=== PATIENT | male | born 1990 | race Caucasian/White ===

== ENCOUNTER 2024-06-27 03:33 | Emergency (ER) | payer SELFPAY ==
[2024-06-27 03:37] VITALS: BP 138/95
[2024-06-27 04:18] VITALS: BP 161/108
[2024-06-27 04:41] LABS: % Basophils 0.3 % (0-2); % Eosinophils 0.8 % (0-6); % Immature Granulocytes 0.4 % (0-0.5); % Lymphocytes 26.1 % (20.5-51.1); % Monocytes 7.4 % (1.7-9.3); Absolute Eosinophils 0.1 10^3/uL (0-0.7); Absolute Lymphocytes 2.9 10^3/uL (1.2-3.4); Absolute Monocytes 0.8 10^3/uL (0.1-0.6); Absolute Neutrophils 7.2 10^3/uL (1.4-6.5); Hematocrit 41.4 % (39.0-52.0); Hemoglobin 14.7 g/dL (13.0-18.0); Mean Corp Hgb Conc. 35.5 g/dL (33.0-37.0); Mean Corpuscular Hgb 32.2 pg (27.0-31.0); Mean Corpuscular Volume 90.8 fL (80.0-94.0); Mean Platelet Volume 11.3 fL (7.4-10.4); Nucleated Red Blood Cells % 0 % (-); Platelet Count 186 10^3/uL (130-400); Red Blood Cell Count 4.56 10^6/uL (4.70-6.10); Red Cell Dist. Width 12.8 % (11.5-14.5); White Blood Cell Count 11.1 10^3/uL (4.8-10.8)
[2024-06-27 04:48] VITALS: BMI 23.0
[2024-06-27 04:56] LABS: ALT (SGPT) 18 U/L (0-50); AST (SGOT) 19 U/L (17-59); Albumin 5.2 g/dl (3.5-5.0); Alkaline Phosphatase 69 U/L (38-126); Blood Urea Nitrogen 12 mg/dl (9-20); Calcium 10.4 mg/dl (8.4-10.2); Carbon Dioxide 19 mmol/L (22-30); Chloride 105 mmol/L (98-107); Estimated Creatinine Clearance > 125 ml/min; Glucose 124 mg/dl (70-99); Potassium 3.8 mmol/L (3.5-5.1); Sodium 135 mmol/L (135-145); Total Bilirubin 1.1 mg/dl (0.2-1.3); Total Protein 7.6 g/dl (6.3-8.2); eGFR > 60.00
[2024-06-27 04:58] LABS: C-Reactive Protein < 5.00 mg/L (0.0-10.00)
--- NOTE | 2024-06-27 05:13 | ED.GENMED ---
History of Present Illness
General
Chief Complaint: Numbness
Source: patient
Exam Limitations: none
Time Seen by Provider: 06/27/24 04:16
Nursing documentation reviewed up to this point in time: agreed with
History of Present Illness
History of Present Illness:
This is a 33-year-old gentleman who has no significant past medical history who states he was skiing in [place] over the past weekend. He did suffer a few minor falls, denies injury. He does note mild intermittent twinges of low back pain while
skiing but generally brief, nonradiating without associated symptoms. He returned home on Monday night, June 23 and has had intermittent mild low back pain since then but then awoke over 24 hours ago with severe generalized low back pain that
has worsened throughout the day. Low back pain seems to come in waves, spasms, questionably worse with movement and he has noticed progressive paresthesia, numbness and tingling of bilateral legs chronic global leg that has worsened throughout the
day as well as progressive weakness of his legs more so left leg than right. He has had no falls. He does admit to marked difficulty lifting his legs to get into the car to be driven to the ED.
He has not had a fever nor chills.
He has had difficulty urinating tonight despite increasing fluid intake. He last voided at 9:30 PM, difficulty doing so and continues with urge to void but unable to do so. He has had no incontinence.
He has not been taking anything for discomfort.
No history of similar episodes in the past.
He takes no medicines on a daily basis.
Past History
Past History
ED Past Medical History: None
ED Past Surgical History: Orthopedic (Right shoulder 2009)
Social History
Tobacco: Smoker
Alcohol: Occasional
Drug: None
Personal: Single
Living: with family
Employment: Employed
Family History
Family History: Other (Kidney stones-father)
Phy Exam
Physical Exam
Physical Exam:
GENERAL: 33-year-old gentleman appears his stated age, awake and alert, appears moderately uncomfortable. Cooperative.
EYE: pupils equal and reactive. anicteric
NECK: Supple, nontender, no meningismus, no significant adenopathy.
ENT: , oral mucosa is moist. No rhinorrhea.
CARDIAC: Regular rate and rhythm. no murmur.
LUNGS: Clear breath sounds bilaterally, no acute respiratory distress, no wheezes/rales/rhonchi
ABDOMEN: Soft, nondistended, mild tenderness over palpably moderately distended bladder. No r/g, no cvat. normoactive BS.
BACK: Mild generalized tenderness bilateral lower lumbar region. No midline bony tenderness.
NEUROLOGICAL: Alert and oriented x3, global paresthesias bilateral lower extremities. Gross sensation intact bilaterally. Mild weakness of hip flexors bilaterally. Dorsiflexion and plantarflexion intact bilaterally. DTRs +2/4 and symmetric
bilaterally
SKIN: Warm and dry, normal color, skin intact. No rash.
MUSCULOSKELETAL: No C/C/E. peripheral pulses are full and equal b/l. No palpable tenderness.
PSYCH: Normal and appropriate interaction.
Course
Orders/Labs/Results
Orders:
Orders
06/27/24 04:03
Bladder Scan- Treatment ONCE
06/27/24 04:18
Straight Cath As Directed
Frequency: One time now
06/27/24 04:21
Lidocaine 2% [Lidocaine Uro-Jet 2%] 1 syringe .ROUTE .K-MED ONE
06/27/24 04:27
CRP [C-Reactive Protein] Urgent
Complete Blood Count/With Diff Urgent
Comprehensive Metabolic Panel Urgent
Sed Rate [Erythrocyte Sed Rate] Urgent
06/27/24 04:36
Lumbar Without Contrast MR [MR Lumbar Without Contrast] Urgent
Comment:
Reason For Exam: severe LBP, x 24 hours w b/l leg weakness/numbness
OK for patient to be off Cardiac Monitoring for MRI: Yes
Recent pill cam endoscopy?: No
06/27/24 05:52
Urinalysis Reflex To Culture Urgent
Date Specimen was Collected: 06/27/24
Time Specimen was Collected: 05:49
06/27/24 06:05
Morphine Sulfate 4 mg IV NOW STA
06/27/24 06:30
CT Angio Abd/Pelvis w/wo IV [CT Abd/pelvis Angio W/wo Iv] Urgent
Comment:
Reason For Exam: acute LBP, urinary retention, LE weakness/numb
Abnormal Lab Results
06/27/24
04:27
WBC 11.1 H 10^3/uL
(4.8-10.8)
RBC 4.56 L 10^6/uL
(4.70-6.10)
MCH 32.2 H pg
(27.0-31.0)
MPV 11.3 H fL
(7.4-10.4)
Absolute Neuts (auto) 7.2 H 10^3/uL
(1.4-6.5)
Absolute Monos (auto) 0.8 H 10^3/uL
(0.1-0.6)
Carbon Dioxide 19 L mmol/L
(22-30)
Glucose 124 H mg/dl
(70-99)
Calcium 10.4 H mg/dl
(8.4-10.2)
Albumin 5.2 H g/dl
(3.5-5.0)
06/27/24 04:27
06/27/24 04:27
Vital Signs
Initial and Last Documented VS:
Initial Vital Signs
Temp Pulse Resp BP Pulse Ox
98.4 F 72 16 138/95 100
06/27/24 03:37 06/27/24 03:37 06/27/24 03:37 06/27/24 03:37 06/27/24 03:37
Last Documented Vital Signs
Temp Pulse Resp BP Pulse Ox
98.4 F 68 16 141/89 100
06/27/24 03:37 06/27/24 06:15 06/27/24 06:15 06/27/24 05:42 06/27/24 06:15
MDM/Problems Addressed
Differential Diagnosis Includes:
Significant concern for acute cord syndrome, cauda equina syndrome as patient presents with acute progressive low back pain with paresis and paresthesia along with acute urinary retention.
Bladder scan reveals 900 cc in the bladder.
Will plan for straight cath, laboratory studies including inflammatory markers and will plan for stat MRI of the lumbar spine.
Update Note
Update Note:
06:45
Patient straight cathed for 1100 cc of urine.
He continues with significant generalized low back pain. Has been given IV morphine, much more comfortable.
Continues with significant paresthesia, globally to bilateral lower extremities with moderate paresis, marked difficulty with hip flexion but continues to have full strength of dorsiflexion and plantarflexion.
Peripheral pulses are full and equal and feet are warm bilaterally.
MRI of the lumbar spine shows disc bulging at L4-L5 with mild bilateral facet arthrosis, mild bilateral foraminal stenosis. L5-S1 disc bulge with left paracentral foraminal extrusion with mild bilateral facet arthrosis. There is no evidence of
high-grade spinal canal stenosis, no evidence of cord compression.
Will check CT angio abdomen pelvis. Concern for potential vascular issue however patient continues with bounding bilateral lower extremity pulses and feet are warm.
Concern for potential transverse myelitis? Guillain-Nielsen� syndrome?
Case discussed with neurology who recommends MR with and without contrast of the cervical and thoracic spine.
ED Attending Note
-
Portions of this chart may have been created with voice recognition software.� Occasional wrong word or��sound alike� substitutions may have occurred due to the inherent limitations of voice recognition software.
Discharge Plan
Departure
Prescriptions:
No Action
sulfamethoxazole-trimethoprim 800 MG/160 MG tablet
1 tab PO BID Qty: 20 0RF
Referrals:
UNKNOWN - PT DOES,NOT KNOW [Family Provider] -
Interventions
Interventions:
*Risk Screen - Suicide Last Done: 06/27/24 03:37
*General Assessment Last Done: 06/27/24 03:37
*Neglect/Abuse Screening Last Done: 06/27/24 06:13
ED- Fall Risk Assessment Last Done: 06/27/24 05:54
*ED COVID-19 Vaccine History Last Done: 06/27/24 05:54
ED- Neurological Assessment Last Done: 06/27/24 04:48
Discharge Date and Time
Print Language: CUBAN
[2024-06-27 05:42] VITALS: BP 141/89
[2024-06-27 05:47] LABS: Erythrocyte Sed Rate 8 mm/hour (0-20)
[2024-06-27] MEDS: MORPHINE SULFATE 4 MG IV (06:09)
[2024-06-27 06:18] LABS: Urine Albumin Negative (Neg - Trace); Urine Bilirubin Negative (Negative); Urine Character Clear (Clear); Urine Color Yellow; Urine Glucose Negative (Negative); Urine Ketone Negative (Negative); Urine Leukocyte Negative (Negative); Urine Nitrite Negative (Negative); Urine Occult Blood Negative (Negative); Urine Specific Gravity 1.005 (<1.030); Urine Urobilinogen Negative (Neg - 1+)
[2024-06-27 07:00] VITALS: BP 141/85
--- NOTE | 2024-06-27 07:46 | CON.NEURO ---
Neuro Assessment/Plan
Assessment
Plan
Check urgent MRI with and without contrast of cervical and thoracic spines, done
Urgent consultation to Neurosurgery
check PT, INR
check CT abdomen/ pelvis
Will follow as needed.
Consultation
Order
Date of Consultation: 06/27/24
Requesting Provider: Emergency department physician
Reason for Consult: Urinary retention
Subjective/Objective
Subjective Data
Date of Service: June 27, 2024
After discussion with the patient's professional medical care providers the history was obtained. Specifically, the patient was performing skiing last weekend without significant trauma. Because of weakness in his legs, as well as significant low
back pain he presented to this hospital's emergency department.
Objective Data
Vital Signs
Temp Pulse Resp BP Pulse Ox
36.9 C 64 16 141/89 100
06/27/24 03:37 06/27/24 06:45 06/27/24 07:00 06/27/24 05:42 06/27/24 06:45
Lab Results
06/27/24 04:27
06/27/24 04:27
Sodium 135 mmol/L (135-145) 06/27/24 04:27
Potassium 3.8 mmol/L (3.5-5.1) 06/27/24 04:27
BUN 12 mg/dl (9-20) 06/27/24 04:27
Glucose 124 mg/dl (70-99) H 06/27/24 04:27
Calcium 10.4 mg/dl (8.4-10.2) H 06/27/24 04:27
Patient Allergies
No Known Allergies Allergy (Verified 06/27/24 03:37)
Data Reviewed
-
MRI Cervical Spine: Image Reviewed
MRI Thoracic Spine: Ordered and Image Reviewed
MRI Lumbar Spine: Report Reviewed
Labs: Report Reviewed
Reviewed with: Physician
Old Records: Summarized
Medications
-
Home Medications
�Medication �Instructions �Recorded
sulfamethoxazole 800 1 tab PO BID #20 tabs 04/19/10
mg-trimethoprim 160 mg tablet
Past History
Past History
ED Past Medical History: None
ED Past Surgical History: Orthopedic (Right shoulder 2009)
Social History
Tobacco: Smoker
Alcohol: Occasional
Drug: None
Personal: Single
Living: with family
Employment: Employed
Family History
Family History: Other (Kidney stones-father)
--- NOTE | 2024-06-27 08:58 | W.PN.UPDATE ---
Update Note
Progress Note Update
Patient MRI T spine showing Epidural hematoma.
Currently in MRI department
Case discussed with Neurosurgery Dr Sabrina De Oliveira @ [facility] and patient will be transferred emergently to [facility] trauma center for neurosurgery
Father updated
ER doc contacted [facility] and ambulance transfer getting arranged.
I have cancelled the admission order and notified admission dept.
--- NOTE | 2024-06-27 09:40 | PHANOTE ---
med rec note- patient took one tablet of mobic 15mg this morning around 230am but the medication was his family members
== END 2024-06-27 09:59 | disposition short-term general hospital (02) ==
LOC: EMR 03:33
PROVIDERS: EMERGENCY PHYSICIAN Emergency Medicine; FAMILY PHYSICIAN Family Medicine; OTHER PHYSICIAN Psychiatry & Neurology Neurology
DX: S06.4X0A Epidural hemorrhage without loss of consciousness, initial encounter (principal); W19.XXXA Unspecified fall, initial encounter; Y93.23 Activity, snow (alpine) (downhill) skiing, snowboarding, sledding, tobogganing and snow tubing; R33.8 Other retention of urine; F17.200 Nicotine dependence, unspecified, uncomplicated
CPT/HCPCS: 99285; 96374; 72148; 72156; 72157; 80053; 81003; 85025; 85652; 86140; A9575